=== PATIENT | male | born 1945 | race Caucasian/White ===

== ENCOUNTER 2018-05-13 06:35 | Day surgery (SDC) | payer MEDICARE, BC ==
[2018-05-13] MEDS ORDERED: Lactated Ringers 1,000 ML IV SCH (07:15)
[2018-05-13] MEDS ORDERED: Midazolam 1 MG/ML 2 ML SDV ONE (07:22)
[2018-05-13] MEDS ORDERED: fentaNYL 100 MCG/2 ML SDV ONE (07:22)
[2018-05-13] MEDS ORDERED: Propofol 200 MG/20 ML SDV ONE (07:23)
--- NOTE | 2018-05-13 09:08 | OR ---
DATE OF PROCEDURE: 05/13/2018 PREOP DIAGNOSIS: Blood in stool. POSTOP DIAGNOSIS: Pandiverticulosis, blood in stool, etiology unknown. PROCEDURE PERFORMED: Colonoscopy to the cecum. ANESTHESIA: IV anesthesia with monitored anesthesia care. INDICATION: This 72-year-old white male is referred for a colonoscopy because of blood in his stool. His last colonoscopic exam he says was in 2005. I counseled him for the procedure, including risks and alternatives, and he gave his informed consent to proceed. DESCRIPTION OF PROCEDURE: The patient was placed in the left lateral decubitus position. IV anesthesia was administered by the Anesthesia Service. Time-out was held. A rectal exam was performed, which was unremarkable. The flexible video Olympus colonoscope was introduced through his anus, up his rectum and out his colon all the way to the cecum. The prep was fairly poor. We did have some solid stool present and also a lot of liquid stool, which was aspirated free. En-route, we saw multiple left and right-sided diverticula. There was no bleeding or inflammation associated with them. Indeed we saw no evidence of any old or new blood in the lower gastrointestinal tract. Once the cecum was reached, the scope was slowly withdrawn examining the mucosa throughout. No additional mucosal abnormalities were noted. No neoplastic lesions were seen. The scope was retroflexed in the rectum with the distal rectum showing some hemorrhoidal tissue, otherwise unremarkable. The scope was straightened and removed. He tolerated the procedure well. Ryan Esquivel MD /[id number]
== END 2018-05-13 09:23 | disposition home or self-care (01) ==
LOC: JP.SDS 06:35
PROVIDERS: ATTEND Surgery
DX: K92.1 Melena (principal); K57.30 Diverticulosis of large intestine without perforation or abscess without bleeding; K64.9 Unspecified hemorrhoids; I10 Essential (primary) hypertension; E78.5 Hyperlipidemia, unspecified
CPT/HCPCS: J2250; J2704; J3010; J7120

== ENCOUNTER 2021-12-01 14:03 | Inpatient (IN) | payer MEDICARE, BC ==
[2021-12-01] MEDS ORDERED: HYDROmorphone 0.5 MG/0.5 ML Syringe IVPUSH ONE ×2 (15:10→16:24)
[2021-12-01] MEDS ORDERED: Sodium Chloride 0.9% 10 ML Syringe FLUSH PRN (15:28)
[2021-12-01] MEDS ORDERED: Metoprolol Tartrate 5 MG/5 ML SDV IVPUSH ONE ×2 (16:37→17:12)
[2021-12-01 17:01] LABS: TROPONIN I HIGH SENSITIVITY 8.3 pg/mL (<=60.3)
[2021-12-01] MEDS ORDERED: Metoprolol Tartrate 5 MG in Sodium Chloride 0.9% 50 ML IV ONE (17:02)
[2021-12-01] MEDS: Metoprolol Tartrate 5 MG/5 ML SDV ONE ×2 (17:13→17:16)
[2021-12-01] MEDS ORDERED: Diltiazem 25 MG/5 ML SDV IVPUSH ONE ×2 (18:18→22:35)
[2021-12-01] MEDS: Diltiazem 100 MG in Sodium Chloride 0.9% 100 ML IV SCH (18:47)
[2021-12-01] MEDS ORDERED: Acetaminophen 325 MG Tab PO PRN (19:13)
[2021-12-01] MEDS ORDERED: Ondansetron 4 MG/2 ML SDV IV PRN (19:13)
[2021-12-01] MEDS ORDERED: Ondansetron 4 MG Tab.DIS PO PRN (19:13)
[2021-12-01] MEDS ORDERED: Sodium Chloride 0.9% 1,000 ML IV SCH (19:13)
[2021-12-01] MEDS ORDERED: fentaNYL 100 MCG/2 ML SDV IVPUSH PRN (19:13)
[2021-12-01] MEDS ORDERED: Dexamethasone 2 MG Tab PO ONE (20:00)
[2021-12-01] MEDS ORDERED: carBAMazepine 200 MG Tab PO SCH (21:00)
[2021-12-01] MEDS ORDERED: atorvaSTATin 10 MG Tab PO SCH (21:00)
[2021-12-01] MEDS: Aspirin 81 MG Tab.EC PO SCH (21:22)
[2021-12-01] MEDS: oxyCODONE 5 MG Tab PO PRN (21:22)
[2021-12-01] MEDS: Melatonin 3 MG Tab PO SCH (21:22)
[2021-12-01] MEDS: Dorzolamide/Timolol 2%-0.5% Ophth Soln 10 ML Bottle EYELF SCH (21:24)
[2021-12-01] MEDS: LORazepam 2 MG/ML SDV IVPUSH PRN (21:34)
[2021-12-01] MEDS: tiZANidine 2 MG Tab PO PRN (22:16)
[2021-12-01] MEDS ORDERED: HYDROmorphone 1 MG/ML Syringe IVPUSH PRN (22:53)
[2021-12-01] MEDS ORDERED: Ketorolac 30 MG/ML SDV IVPUSH ONE (22:53)
[2021-12-01] MEDS ORDERED: Metoprolol Tartrate 25 MG Tab PO ONE (22:54)
[2021-12-02] MEDS: oxyCODONE 5 MG Tab PO PRN ×4 (01:31→16:18)
[2021-12-02] MEDS: Diltiazem 100 MG in Sodium Chloride 0.9% 100 ML IV SCH (03:42)
[2021-12-02] MEDS ORDERED: ALPRAZolam 0.25 MG Tab PO PRN (07:08)
[2021-12-02] MEDS: Dexamethasone 2 MG Tab PO SCH ×4 (07:54→20:45)
[2021-12-02] MEDS: Dorzolamide/Timolol 2%-0.5% Ophth Soln 10 ML Bottle EYELF SCH ×2 (08:26→20:44)
[2021-12-02] MEDS: Multivitamins with Iron/Calcium/Folic Acid/Minerals Tab PO SCH (08:32)
[2021-12-02] MEDS: Metoprolol Succinate 50 MG **PTOM PO SCH (08:33)
[2021-12-02] MEDS: CARBAMAZEPINE 100 MG PO SCH ×2 (08:35→20:46)
[2021-12-02] MEDS ORDERED: Clopidogrel 75 MG Tab PO SCH (09:00)
[2021-12-02] MEDS ORDERED: Aspirin 81 MG Tab.EC PO SCH (09:00)
[2021-12-02] MEDS: Hydrochlorothiazide 25 MG **PTOM PO SCH (11:32)
[2021-12-02] MEDS ORDERED: Diltiazem IR 30 MG Tab PO SCH (12:00)
[2021-12-02] MEDS ORDERED: Metoprolol Tartrate 25 MG Tab PO ONE (17:08)
[2021-12-02] MEDS: Diltiazem IR 30 MG Tab PO SCH ×2 (17:37→22:59)
[2021-12-02] MEDS: Melatonin 3 MG Tab PO SCH (20:45)
[2021-12-02] MEDS: Aspirin 81 MG Tab.EC PO SCH (20:45)
[2021-12-02] MEDS: SIMVASTATIN 20 MG PO SCH (20:47)
[2021-12-03] MEDS: LORazepam 2 MG/ML SDV IVPUSH PRN (00:41)
[2021-12-03] MEDS: Diltiazem IR 30 MG Tab PO SCH (06:01)
[2021-12-03] MEDS: Dexamethasone 2 MG Tab PO SCH ×3 (08:37→21:27)
[2021-12-03] MEDS: Dorzolamide/Timolol 2%-0.5% Ophth Soln 10 ML Bottle EYELF SCH ×2 (08:44→21:27)
[2021-12-03] MEDS: CARBAMAZEPINE 100 MG PO SCH ×2 (08:45→21:29)
[2021-12-03] MEDS: Hydrochlorothiazide 25 MG **PTOM PO SCH (08:46)
[2021-12-03] MEDS: Multivitamins with Iron/Calcium/Folic Acid/Minerals Tab PO SCH (08:47)
[2021-12-03] MEDS: Metoprolol Succinate 50 MG **PTOM PO SCH (08:48)
[2021-12-03] MEDS: tiZANidine 2 MG Tab PO PRN ×2 (09:02→21:30)
[2021-12-03] MEDS: Diltiazem 120 MG Cap.CD PO SCH (10:15)
[2021-12-03] MEDS: Acetaminophen/HYDROcodone 325-5 MG Tab PO PRN (11:56)
[2021-12-03] MEDS: Magnesium Hydroxide 400 MG/5 ML Susp 30 ML Cup PO PRN (18:49)
[2021-12-03] MEDS: Rivaroxaban 10 MG Tab PO SCH (18:49)
[2021-12-03] MEDS ORDERED: CARBAMAZEPINE 100 MG PO SCH (21:00)
[2021-12-03] MEDS ORDERED: carBAMazepine 200 MG Tab PO SCH (21:00)
[2021-12-03] MEDS: Aspirin 81 MG Tab.EC PO SCH (21:28)
[2021-12-03] MEDS: Melatonin 3 MG Tab PO SCH (21:28)
[2021-12-03] MEDS: SIMVASTATIN 20 MG PO SCH (21:30)
[2021-12-04] MEDS ORDERED: Meropenem 1 GM in Sodium Chloride 0.9% 100 ML IV SCH ×2
[2021-12-04] MEDS: Morphine 2 MG/ML SYRINGE IVPUSH PRN ×3 (04:28→22:26)
[2021-12-04] MEDS: Acetaminophen/HYDROcodone 325-5 MG Tab PO PRN ×4 (08:47→21:35)
[2021-12-04] MEDS: Multivitamins with Iron/Calcium/Folic Acid/Minerals Tab PO SCH (08:48)
[2021-12-04] MEDS: Dorzolamide/Timolol 2%-0.5% Ophth Soln 10 ML Bottle EYELF SCH ×2 (08:48→20:16)
[2021-12-04] MEDS: CARBAMAZEPINE 100 MG PO SCH ×2 (08:49→20:12)
[2021-12-04] MEDS: Dexamethasone 2 MG Tab PO SCH (08:49)
[2021-12-04] MEDS: Diltiazem 120 MG Cap.CD PO SCH (08:50)
[2021-12-04] MEDS: Metoprolol Succinate 50 MG **PTOM PO SCH (08:50)
[2021-12-04] MEDS: Magnesium Hydroxide 400 MG/5 ML Susp 30 ML Cup PO PRN (10:38)
[2021-12-04] MEDS ORDERED: Furosemide 20 MG/2 ML VIAL IVPUSH ONE (16:00)
[2021-12-04] MEDS ORDERED: Bisacodyl 10 MG Supp RECTAL ONE (16:10)
[2021-12-04] MEDS ORDERED: Sodium Phosphate,Monobasic/Sodium Phosphate,Dibasic Enema 133 ML Bottle RECTAL PRN (16:15)
[2021-12-04] MEDS: Rivaroxaban 10 MG Tab PO SCH (17:07)
[2021-12-04] MEDS ORDERED: Sodium Chloride 0.9% 1,000 ML IV SCH (19:45)
[2021-12-04] MEDS: SIMVASTATIN 20 MG PO SCH (20:12)
[2021-12-04] MEDS: Aspirin 81 MG Tab.EC PO SCH (20:12)
[2021-12-04] MEDS: Melatonin 3 MG Tab PO SCH (20:12)
[2021-12-04] MEDS ORDERED: ceFAZolin 2 GM in Premix Bag 1 BAG IV SCH (21:00)
[2021-12-04] MEDS ORDERED: Diltiazem IR 30 MG Tab PO ONE (21:23)
[2021-12-04] MEDS: tiZANidine 2 MG Tab PO PRN (21:35)
[2021-12-04] MEDS ORDERED: Levofloxacin/Dextrose 5%-Water 750 MG in Premix Bag 1 BAG IV SCH (23:00)
[2021-12-04] MEDS ORDERED: Vancomycin 1 GM SDV IV SCH (23:45)
[2021-12-05] MEDS ORDERED: Meropenem 1 GM in Sodium Chloride 0.9% 100 ML IV SCH ×2
[2021-12-05] MEDS ORDERED: Levofloxacin/Dextrose 5%-Water 750 MG in Premix Bag 1 BAG IV SCH (01:00)
[2021-12-05] MEDS: LORazepam 2 MG/ML SDV IVPUSH PRN ×2 (01:42→11:27)
[2021-12-05] MEDS: Morphine 2 MG/ML SYRINGE IVPUSH PRN ×2 (03:50→10:00)
[2021-12-05] MEDS: tiZANidine 2 MG Tab PO PRN (05:00)
[2021-12-05] MEDS ORDERED: Lidocaine 2% Jelly 10 ML Urojet MUCMEM ONE (05:42)
[2021-12-05] MEDS ORDERED: Haloperidol Lactate 5 MG/ML SDV ONE (05:45)
[2021-12-05] MEDS ORDERED: Lidocaine 2% Jelly 10 ML Urojet ONE (05:45)
[2021-12-05] MEDS: Haloperidol Lactate 5 MG/ML SDV IVPUSH PRN ×4 (05:49→20:40)
[2021-12-05] MEDS: Diltiazem 120 MG Cap.CD PO SCH (08:09)
[2021-12-05] MEDS: Metoprolol Succinate 50 MG **PTOM PO SCH (08:09)
[2021-12-05] MEDS: Multivitamins with Iron/Calcium/Folic Acid/Minerals Tab PO SCH (08:09)
[2021-12-05] MEDS: Dorzolamide/Timolol 2%-0.5% Ophth Soln 10 ML Bottle EYELF SCH ×2 (08:10→22:25)
[2021-12-05] MEDS: CARBAMAZEPINE 100 MG PO SCH ×2 (08:10→22:26)
[2021-12-05] MEDS: Meropenem 1 GM in Sodium Chloride 0.9% 100 ML IV SCH ×2 (08:22→16:11)
[2021-12-05] MEDS: Acetaminophen 325 MG Tab PO PRN ×2 (11:26→22:25)
[2021-12-05] MEDS: Diltiazem 100 MG in Sodium Chloride 0.9% 100 ML IV SCH ×2 (11:30→22:02)
[2021-12-05] MEDS ORDERED: HYDROmorphone 1 MG/ML Syringe IVPUSH PRN (12:51)
[2021-12-05] MEDS ORDERED: Tamsulosin 0.4 MG Cap.ER PO SCH (13:00)
[2021-12-05] MEDS ORDERED: HYDROmorphone 0.5 MG/0.5 ML Syringe IVPUSH PRN (13:05)
[2021-12-05] MEDS ORDERED: Sodium Chloride 0.9% 100 ML IV SCH (13:15)
[2021-12-05] MEDS ORDERED: Iopamidol 755 Mg/ML 100 ML Bottle IV SCH (14:00)
[2021-12-05] MEDS ORDERED: Vancomycin 1 GM SDV ONE (14:00)
[2021-12-05] MEDS ORDERED: Iopamidol 612 MG/ML 100 ML Bottle IV ONE (14:27)
[2021-12-05] MEDS ORDERED: Sodium Chloride 3% 500 ML IV SCH (17:00)
[2021-12-05] MEDS: Rivaroxaban 10 MG Tab PO SCH (17:17)
[2021-12-05] MEDS: Melatonin 3 MG Tab PO SCH (22:26)
[2021-12-05] MEDS: Aspirin 81 MG Tab.EC PO SCH (22:26)
[2021-12-05] MEDS: SIMVASTATIN 20 MG PO SCH (22:26)
[2021-12-06] MEDS ORDERED: Metoprolol Succinate 50 MG Tab.ER PO SCH (09:00)
== END 2021-12-05 22:35 | DRG 94 ==
LOC: JP.ED 14:03 → UNDOADMOB 18:20 → JP.ICU 18:20 → OBSVTOIN 19:30 → INTOOBSV 19:30 → OBSVTOIN 12-04 19:30 → JP.ICU 12-04 19:30
PROVIDERS: ADMIT Internal Medicine; ATTEND Hospitalist
DX: G06.1 Intraspinal abscess and granuloma (principal); J18.9 Pneumonia, unspecified organism; H91.93 Unspecified hearing loss, bilateral; N13.8 Other obstructive and reflux uropathy; I10 Essential (primary) hypertension; E87.1 Hypo-osmolality and hyponatremia; N40.0 Benign prostatic hyperplasia without lower urinary tract symptoms; F05 Delirium due to known physiological condition; I48.91 Unspecified atrial fibrillation; N40.1 Benign prostatic hyperplasia with lower urinary tract symptoms; I25.2 Old myocardial infarction; I08.0 Rheumatic disorders of both mitral and aortic valves; M54.50 Low back pain, unspecified; M47.816 Spondylosis without myelopathy or radiculopathy, lumbar region; I77.89 Other specified disorders of arteries and arterioles; H91.90 Unspecified hearing loss, unspecified ear; E66.9 Obesity, unspecified; E78.00 Pure hypercholesterolemia, unspecified; Z68.35 Body mass index [BMI] 35.0-35.9, adult; Z95.5 Presence of coronary angioplasty implant and graft; Z86.19 Personal history of other infectious and parasitic diseases; Z79.82 Long term (current) use of aspirin; Z79.899 Other long term (current) drug therapy; Z97.4 Presence of external hearing-aid; Z79.02 Long term (current) use of antithrombotics/antiplatelets
CPT/HCPCS: 36415; 51702; 71046; 71046-26; 71260; 71260-26; 72100; 72100-26; 72133; 72133-26; 74019; 74019-26; 74177; 74177-26; 80048; 81001; 83735; 84295; 84443; 84484; 85025; 85610; 87040; 87077; 87186; 93005; 93010; 93306; 96365; 96366; 96374; 96375; 96376; 97161-GP; 99283; 99285-25; A9270-GY; G0378; J0690; J1170; J1630; J1885; J1940; J1956; J2060; J2185; J2270; J3010; J3370; J3490; J7030; J7050; J7131; J8540; Q0162; Q9967

== ENCOUNTER 2023-03-30 11:07 | Inpatient (IN) | payer MEDICARE, BC ==
[2023-03-30] MEDS ORDERED: Sodium Chloride 0.9% 10 ML Syringe FLUSH PRN (11:57)
[2023-03-30] MEDS ORDERED: Metoclopramide 10 MG/2 ML SDV IVPUSH ONE (12:00)
[2023-03-30] MEDS ORDERED: HYDROmorphone 0.5 MG/0.5 ML Syringe IVPUSH ONE ×2 (12:00→14:45)
[2023-03-30 12:11] LABS: HEMOGLOBIN 15.8 g/dL (12.9-16.9); MEAN CORPUSCULAR HEMOGLOBIN 32.1 pg (31.6-35.5); MEAN CORPUSCULAR HGB CONC 34.3 g/dL (31.6-35.5); MEAN CORPUSCULAR VOLUME 93.5 fL (81.4-99.0); PLATELET COUNT,PLT 162 K/uL (130-375); RED BLOOD CELL COUNT 4.92 M/uL (4.14-5.76); WHITE BLOOD CELL COUNT,WBC 7.2 K/uL (3.2-11.0)
[2023-03-30 12:32] LABS: A/G RATIO 0.9 (1.2-2.2); ALANINE AMINOTRANSFERASE,ALT 26 U/L (12-78); ALBUMIN 3.4 g/dL (3.4-5.0); ALKALINE PHOSPHATASE 100 U/L (46-116); ASPARTATE AMNIOTRANSFERASE,AST 29 U/L (15-37); BILIRUBIN TOTAL 2.1 mg/dL (0.2-1.0); BLOOD UREA NITROGEN,BUN 16 mg/dL (7-18); C-REACTIVE PROTEIN 7.05 mg/dL (0.0-0.3); CALCIUM 9.8 mg/dL (8.5-10.1); CARBON DIOXIDE,CO2 33 mmol/L (21-32); CHLORIDE,CL 98 mmol/L (100-108); CREATININE 1.1 mg/dL (0.8-1.3); EST CRCL DRUG DOSING (CG) 52.68 mL/min; ESTIMATED GFR 68 mL/min (>60); GLUCOSE RANDOM 138 mg/dL (74-106); POTASSIUM,K 3.9 mmol/L (3.6-5.2); PROTEIN TOTAL,TP 7.4 g/dL (6.4-8.2); SODIUM,NA 139 mmol/L (140-148)
[2023-03-30 12:35] LABS: BAND ABSOLUTE MAN 1.58 K/uL; BAND PERCENT MAN 22 % (5-11); LYMPHOCYTES ABSOLUTE MAN 0.72 K/uL (0.8-3.3); LYMPHOCYTES PERCENT MAN 10 % (24-44); MONOCYTES ABSOLUTE MAN 0.79 K/uL (0.20-0.90); MONOCYTES PERCENT MAN 11 % (2-6); SEG NEUTROPHILS PERCENT MAN 57 % (36-66)
[2023-03-30 12:37] LABS: ANION GAP 11.9 mmol/L (5.0-14.0)
[2023-03-30] MEDS ORDERED: Sodium Chloride 0.9% 50 ML IV ONE (12:42)
[2023-03-30] MEDS ORDERED: Iopamidol 612 MG/ML 100 ML Bottle IV ONE (12:42)
[2023-03-30] MEDS ORDERED: Sodium Chloride 0.9% 10 ML Syringe FLUSH ONE (12:42)
[2023-03-30 13:44] LABS: APPEARANCE,URINE SLIGHTLY CLOUDY (CLEAR); BILIRUBIN,URINE NEGATIVE (NEGATIVE); COLOR,URINE YELLOW (YELLOW); GLUCOSE,URINE NEGATIVE (NEGATIVE); KETONES,URINE NEGATIVE (NEGATIVE); LEUKOCYTE ESTERASE,URINE NEGATIVE (NEGATIVE); NITRITE,URINE NEGATIVE (NEGATIVE); OCCULT BLOOD,URINE SMALL (NEGATIVE); PROTEIN,URINE 30 mg/dL (NEGATIVE); UROBILINOGEN,URINE 0.2 EU/dL (0.2-1.0)
[2023-03-30 13:49] LABS: AMORPHOUS SEDIMENT,URINE RARE; BACTERIA,URINE NOT SEEN; EPITHELIAL CELLS,URINE NOT SEEN; MUCUS,URINE NOT SEEN; WBC,URINE 0-5 (0-5)
[2023-03-30] MEDS ORDERED: Meropenem 500 MG in Sodium Chloride 0.9% 50 ML IV ONE (14:37)
[2023-03-30] MEDS ORDERED: Sodium Chloride 0.9% 1,000 ML IV SCH (15:15)
[2023-03-30] MEDS ORDERED: Glycopyrrolate 0.2 MG/ML 5 ML MDV ONE (15:24)
[2023-03-30] MEDS ORDERED: Neostigmine Methylsulfate 1 MG/ML 5 ML Syringe ONE (15:24)
[2023-03-30] MEDS ORDERED: Succinylcholine 200 MG/10 ML MDV ONE (15:24)
[2023-03-30] MEDS ORDERED: Ondansetron 4 MG/2 ML SDV ONE (15:24)
[2023-03-30] MEDS ORDERED: Propofol 200 MG/20 ML SDV ONE (15:24)
[2023-03-30] MEDS ORDERED: Rocuronium 50 MG/5 ML Vial ONE (15:24)
[2023-03-30] MEDS ORDERED: fentaNYL 250 MCG/5 ML SDV ONE (15:24)
[2023-03-30] MEDS ORDERED: Dexamethasone 4 MG/ML SDV ONE (15:24)
[2023-03-30] MEDS ORDERED: Ketamine 500 MG/5 ML MDV IV SCH (15:30)
[2023-03-30] MEDS ORDERED: Ropivacaine 40 ML, dexAMETHasone 8 MG, EPINEPHrine 0.4 MG, Sodium Chloride 0.9% 37.6 ML NERVRT SCH ×4 (15:30)
[2023-03-30] MEDS ORDERED: Ketamine 20 MG in Sodium Chloride 0.9% 19.8 ML IV SCH (15:30)
[2023-03-30] MEDS ORDERED: Lidocaine 2% Jelly 10 ML Urojet ONE (15:38)
[2023-03-30] MEDS ORDERED: Lidocaine 1% with EPINEPHrine 1:100,000 50 ML MDV ONE (15:38)
[2023-03-30] MEDS ORDERED: Bupivacaine 0.5% 50 ML MDV ONE (15:38)
[2023-03-30] MEDS ORDERED: Meropenem 500 MG SDV ONE ×3 (15:38→16:47)
[2023-03-30] MEDS ORDERED: Linezolid 600 MG/300 ML Premix Bag IRR ONE ×2 (16:00→16:15)
[2023-03-30] MEDS ORDERED: Lactated Ringers 1,000 ML ONE (16:27)
[2023-03-30] MEDS ORDERED: Linezolid 600 MG/300 ML Premix Bag IV ONE (16:30)
[2023-03-30] MEDS ORDERED: Cyclobenzaprine 10 MG Tab PO PRN (19:30)
[2023-03-30] MEDS ORDERED: hydrOXYzine HCL 100 MG/2 ML SDV IM PRN (20:00)
[2023-03-30] MEDS ORDERED: Ondansetron 4 MG/2 ML SDV IVPUSH PRN (20:00)
[2023-03-30] MEDS ORDERED: Naloxone 0.4 MG/ML SDV IV PRN (20:00)
[2023-03-30] MEDS ORDERED: diphenhydrAMINE 50 MG/ML SDV IVPUSH PRN (20:00)
[2023-03-30] MEDS ORDERED: Acetaminophen 500 MG Tab PO PRN (20:00)
[2023-03-30] MEDS: Pantoprazole 40 MG Vial IVPUSH SCH (20:00)
[2023-03-30] MEDS ORDERED: Labetalol 20 MG/4 ML Syringe IVPUSH PRN (20:00)
[2023-03-30] MEDS ORDERED: Metoclopramide 10 MG/2 ML SDV IVPUSH PRN (20:00)
[2023-03-30] MEDS: Acetaminophen 500 MG Tab PO SCH (20:00)
[2023-03-30] MEDS: HYDROmorphone/Normal Saline 6 MG/30 ML PCA Vial IV PRN (20:01)
[2023-03-30] MEDS ORDERED: Lactated Ringers 750 ML IV SCH (20:30)
[2023-03-30] MEDS ORDERED: Lactated Ringers 750 ML IV ONE (21:09)
[2023-03-30] MEDS: Fluconazole/Normal Saline 400 MG in Premix Bag 1 BAG IV SCH (21:39)
[2023-03-30] MEDS: Meropenem 500 MG in Sodium Chloride 0.9% 50 ML IV SCH (23:57)
[2023-03-31] MEDS ORDERED: Lactated Ringers 500 ML IV ONE ×2 (01:06→03:25)
[2023-03-31] MEDS: Sotalol 80 MG Tab PO SCH ×3 (01:23→21:24)
[2023-03-31] MEDS: Lactated Ringers 1,000 ML IV SCH ×3 (03:16→23:44)
[2023-03-31] MEDS: Metoprolol Tartrate 50 MG Tab ONE ×2 (03:40→03:42)
[2023-03-31] MEDS ORDERED: Metoprolol Succinate 50 MG Tab.ER ONE (03:47)
[2023-03-31] MEDS: Metoprolol Succinate 50 MG Tab.ER PO SCH ×2 (03:48→09:39)
[2023-03-31] MEDS: Acetaminophen 500 MG Tab PO SCH ×3 (04:14→21:24)
[2023-03-31 04:43] LABS: HEMATOCRIT 42.5 % (38.4-49.7); HEMOGLOBIN 14.4 g/dL (12.9-16.9); MEAN CORPUSCULAR HEMOGLOBIN 32.2 pg (31.6-35.5); MEAN CORPUSCULAR HGB CONC 33.9 g/dL (31.6-35.5); MEAN CORPUSCULAR VOLUME 95.1 fL (81.4-99.0); PLATELET COUNT,PLT 176 K/uL (130-375); RED BLOOD CELL COUNT 4.47 M/uL (4.14-5.76); WHITE BLOOD CELL COUNT,WBC 10.9 K/uL (3.2-11.0)
[2023-03-31] MEDS: Meropenem 500 MG in Sodium Chloride 0.9% 50 ML IV SCH ×4 (04:53→23:41)
[2023-03-31 05:11] LABS: A/G RATIO 0.8 (1.2-2.2); ALANINE AMINOTRANSFERASE,ALT 20 U/L (12-78); ALBUMIN 2.5 g/dL (3.4-5.0); ALKALINE PHOSPHATASE 69 U/L (46-116); ASPARTATE AMNIOTRANSFERASE,AST 20 U/L (15-37); BILIRUBIN TOTAL 1.6 mg/dL (0.2-1.0); BLOOD UREA NITROGEN,BUN 25 mg/dL (7-18); CALCIUM 8.8 mg/dL (8.5-10.1); CARBON DIOXIDE,CO2 29 mmol/L (21-32); CHLORIDE,CL 100 mmol/L (100-108); CREATININE 1.3 mg/dL (0.8-1.3); EST CRCL DRUG DOSING (CG) 44.58 mL/min; ESTIMATED GFR 56 mL/min (>60); GLUCOSE RANDOM 99 mg/dL (74-106); MAGNESIUM 1.7 mg/dL (1.8-2.4); PHOSPHORUS 4.8 mg/dL (2.5-4.9); POTASSIUM,K 4.2 mmol/L (3.6-5.2); PRO B-TYPE NATRIUR PEPT,BNPPRO 6372 pg/mL (5-450); PROTEIN TOTAL,TP 5.7 g/dL (6.4-8.2); SODIUM,NA 137 mmol/L (140-148)
[2023-03-31] MEDS ORDERED: Sodium Chloride 0.9% 500 ML IV ONE (05:11)
[2023-03-31 05:19] LABS: ANION GAP 12.2 mmol/L (5.0-14.0)
[2023-03-31 05:22] LABS: BAND ABSOLUTE MAN 2.94 K/uL; BAND PERCENT MAN 27 % (5-11); LYMPHOCYTES ABSOLUTE MAN 0.87 K/uL (0.8-3.3); LYMPHOCYTES PERCENT MAN 8 % (24-44); METAMYELOCYTE ABSOLUTE MAN 0.22 K/uL; METAMYELOCYTE PERCENT MAN 2 %; MONOCYTES ABSOLUTE MAN 0.65 K/uL (0.20-0.90); MONOCYTES PERCENT MAN 6 % (2-6); NEUTROPHILS ABSOLUTE MAN 6.21 K/uL (1.0-7.6); SEG NEUTROPHILS PERCENT MAN 57 % (36-66)
[2023-03-31] MEDS: Linezolid 600 MG in Premix Bag 1 BAG IV SCH ×2 (06:02→17:19)
[2023-03-31] MEDS ORDERED: Lactated Ringers 500 ML IV SCH (08:15)
[2023-03-31] MEDS ORDERED: Norepinephrine Bit/D5W Premix 4 MG in Premix Bag 1 BAG IV SCH (08:15)
[2023-03-31] MEDS ORDERED: Diltiazem 25 MG/5 ML SDV IVPUSH ONE (08:33)
[2023-03-31] MEDS: Diltiazem 100 MG in Sodium Chloride 0.9% 100 ML IV SCH (09:30)
[2023-03-31] MEDS: Tamsulosin 0.4 MG Cap.ER PO SCH (09:41)
[2023-03-31] MEDS ORDERED: Bupivacaine 0.5% 50 ML MDV ONE (10:45)
[2023-03-31] MEDS ORDERED: Meropenem 500 MG SDV ONE (10:45)
[2023-03-31] MEDS ORDERED: Lidocaine 1% with EPINEPHrine 1:100,000 50 ML MDV ONE (10:45)
[2023-03-31] MEDS ORDERED: Rocuronium 50 MG/5 ML Vial ONE (10:58)
[2023-03-31] MEDS ORDERED: Ondansetron 4 MG/2 ML SDV ONE (10:58)
[2023-03-31] MEDS ORDERED: Succinylcholine 200 MG/10 ML MDV ONE (10:58)
[2023-03-31] MEDS ORDERED: Propofol 200 MG/20 ML SDV ONE (10:58)
[2023-03-31] MEDS ORDERED: Neostigmine Methylsulfate 1 MG/ML 5 ML Syringe ONE (10:58)
[2023-03-31] MEDS ORDERED: Dexamethasone 4 MG/ML SDV ONE (10:58)
[2023-03-31] MEDS ORDERED: Glycopyrrolate 0.2 MG/ML 5 ML MDV ONE (10:58)
[2023-03-31] MEDS ORDERED: fentaNYL 250 MCG/5 ML SDV ONE (11:00)
[2023-03-31] MEDS ORDERED: Ketamine 20 MG in Sodium Chloride 0.9% 19.8 ML IV SCH (12:00)
[2023-03-31] MEDS ORDERED: Ketamine 500 MG/5 ML MDV IV SCH (12:00)
[2023-03-31] MEDS ORDERED: MVI, Adult with Vitamin K 10 ML, Thiamine 200 MG, Zinc/Copper/Manganese/Selenium 1 ML i... IV SCH ×4 (14:00)
[2023-03-31] MEDS ORDERED: Linezolid 600 MG/300 ML Premix Bag IRR ONE (14:57)
[2023-03-31] MEDS ORDERED: Sugammadex Sodium 200 MG/2 ML VIAL ONE (15:28)
[2023-03-31] MEDS ORDERED: Heparin Sodium 5,000 UNITS in Sodium Chloride 0.9% 500 ML IV SCH (17:00)
[2023-03-31] MEDS: HYDROmorphone/Normal Saline 6 MG/30 ML PCA Vial IV PRN (17:25)
[2023-03-31] MEDS: MVI, Adult with Vitamin K 10 ML, Thiamine 200 MG, Zinc/Copper/Manganese/Selenium 1 ML i... IV SCH ×4 (17:45)
[2023-03-31] MEDS: Dorzolamide/Timolol 2%-0.5% Ophth Soln 10 ML Bottle EYELF SCH ×2 (19:53→20:32)
[2023-03-31] MEDS: Pantoprazole 40 MG Vial IVPUSH SCH (20:00)
[2023-03-31] MEDS: Fluconazole/Normal Saline 400 MG in Premix Bag 1 BAG IV SCH (21:23)
[2023-04-01] MEDS: Diltiazem 100 MG in Sodium Chloride 0.9% 100 ML IV SCH ×2 (00:22→15:37)
[2023-04-01] MEDS ORDERED: Lactated Ringers 500 ML IV ONE (00:30)
[2023-04-01] MEDS: Lactated Ringers 1,000 ML IV SCH ×3 (03:17→22:03)
[2023-04-01 04:21] LABS: HEMATOCRIT 36.9 % (38.4-49.7); HEMOGLOBIN 12.4 g/dL (12.9-16.9); MEAN CORPUSCULAR HEMOGLOBIN 32.3 pg (31.6-35.5); MEAN CORPUSCULAR HGB CONC 33.6 g/dL (31.6-35.5); MEAN CORPUSCULAR VOLUME 96.1 fL (81.4-99.0); PLATELET COUNT,PLT 169 K/uL (130-375); RED BLOOD CELL COUNT 3.84 M/uL (4.14-5.76); WHITE BLOOD CELL COUNT,WBC 11.2 K/uL (3.2-11.0)
[2023-04-01 04:47] LABS: BAND ABSOLUTE MAN 2.58 K/uL; BAND PERCENT MAN 23 % (5-11); LYMPHOCYTES ABSOLUTE MAN 1.01 K/uL (0.8-3.3); LYMPHOCYTES PERCENT MAN 9 % (24-44); METAMYELOCYTE ABSOLUTE MAN 0.11 K/uL; METAMYELOCYTE PERCENT MAN 1 %; MONOCYTES ABSOLUTE MAN 0.67 K/uL (0.20-0.90); MONOCYTES PERCENT MAN 6 % (2-6); NEUTROPHILS ABSOLUTE MAN 6.83 K/uL (1.0-7.6); SEG NEUTROPHILS PERCENT MAN 61 % (36-66)
[2023-04-01 04:53] LABS: A/G RATIO 0.7 (1.2-2.2); ALANINE AMINOTRANSFERASE,ALT 20 U/L (12-78); ALBUMIN 2.2 g/dL (3.4-5.0); ALKALINE PHOSPHATASE 62 U/L (46-116); ASPARTATE AMNIOTRANSFERASE,AST 28 U/L (15-37); BILIRUBIN TOTAL 0.9 mg/dL (0.2-1.0); BLOOD UREA NITROGEN,BUN 27 mg/dL (7-18); CALCIUM 8.2 mg/dL (8.5-10.1); CARBON DIOXIDE,CO2 29 mmol/L (21-32); CHLORIDE,CL 101 mmol/L (100-108); CREATININE 1.2 mg/dL (0.8-1.3); EST CRCL DRUG DOSING (CG) 48.29 mL/min; ESTIMATED GFR 62 mL/min (>60); GLUCOSE RANDOM 105 mg/dL (74-106); MAGNESIUM 1.9 mg/dL (1.8-2.4); PHOSPHORUS 3.3 mg/dL (2.5-4.9); POTASSIUM,K 4.4 mmol/L (3.6-5.2); PRO B-TYPE NATRIUR PEPT,BNPPRO 4021 pg/mL (5-450); PROTEIN TOTAL,TP 5.5 g/dL (6.4-8.2); SODIUM,NA 135 mmol/L (140-148)
[2023-04-01] MEDS: Meropenem 500 MG in Sodium Chloride 0.9% 50 ML IV SCH ×4 (05:13→23:39)
[2023-04-01] MEDS: Linezolid 600 MG in Premix Bag 1 BAG IV SCH ×2 (05:38→18:20)
[2023-04-01 05:41] LABS: ANION GAP 9.4 mmol/L (5.0-14.0)
[2023-04-01] MEDS: Acetaminophen 500 MG Tab PO SCH ×4 (05:56→21:18)
[2023-04-01] MEDS: Sotalol 80 MG Tab PO SCH ×2 (09:00→20:20)
[2023-04-01] MEDS: Tamsulosin 0.4 MG Cap.ER PO SCH (09:01)
[2023-04-01] MEDS: Metoprolol Succinate 50 MG Tab.ER PO SCH (09:02)
[2023-04-01] MEDS: Dorzolamide/Timolol 2%-0.5% Ophth Soln 10 ML Bottle EYELF SCH ×2 (09:19→20:19)
[2023-04-01] MEDS: Azithromycin 125 MG in Sodium Chloride 0.9% 100 ML IV SCH ×2 (09:58→22:01)
[2023-04-01] MEDS: prednisoLONE Acetate 1% Ophth Susp (PTOM) EYELF SCH (11:15)
[2023-04-01] MEDS: MVI, Adult with Vitamin K 10 ML, Thiamine 200 MG, Zinc/Copper/Manganese/Selenium 1 ML i... IV SCH ×4 (15:14)
[2023-04-01] MEDS: Pantoprazole 40 MG Vial IVPUSH SCH (20:17)
[2023-04-01] MEDS: Fluconazole/Normal Saline 200 MG in Premix Bag 1 BAG IV SCH ×2 (21:22→22:26)
[2023-04-02] MEDS: Lactated Ringers 1,000 ML IV SCH ×2 (04:10→10:25)
[2023-04-02] MEDS: Diltiazem 100 MG in Sodium Chloride 0.9% 100 ML IV SCH ×2 (04:13→17:28)
[2023-04-02] MEDS: Meropenem 500 MG in Sodium Chloride 0.9% 50 ML IV SCH ×4 (04:15→22:32)
[2023-04-02 04:45] LABS: HEMATOCRIT 37.7 % (38.4-49.7); HEMOGLOBIN 12.6 g/dL (12.9-16.9); MEAN CORPUSCULAR HEMOGLOBIN 32.1 pg (31.6-35.5); MEAN CORPUSCULAR HGB CONC 33.4 g/dL (31.6-35.5); MEAN CORPUSCULAR VOLUME 96.2 fL (81.4-99.0); RED BLOOD CELL COUNT 3.92 M/uL (4.14-5.76); WHITE BLOOD CELL COUNT,WBC 13.6 K/uL (3.2-11.0)
[2023-04-02 05:12] LABS: A/G RATIO 0.6 (1.2-2.2); ALANINE AMINOTRANSFERASE,ALT 22 U/L (12-78); ALBUMIN 2.1 g/dL (3.4-5.0); ALKALINE PHOSPHATASE 58 U/L (46-116); ASPARTATE AMNIOTRANSFERASE,AST 30 U/L (15-37); BILIRUBIN TOTAL 0.6 mg/dL (0.2-1.0); BLOOD UREA NITROGEN,BUN 21 mg/dL (7-18); CALCIUM 8.1 mg/dL (8.5-10.1); CARBON DIOXIDE,CO2 29 mmol/L (21-32); CHLORIDE,CL 102 mmol/L (100-108); EST CRCL DRUG DOSING (CG) 57.95 mL/min; ESTIMATED GFR 77 mL/min (>60); GLUCOSE RANDOM 101 mg/dL (74-106); MAGNESIUM 1.9 mg/dL (1.8-2.4); POTASSIUM,K 4.1 mmol/L (3.6-5.2); PRO B-TYPE NATRIUR PEPT,BNPPRO 3290 pg/mL (5-450); PROTEIN TOTAL,TP 5.5 g/dL (6.4-8.2); SODIUM,NA 136 mmol/L (140-148)
[2023-04-02 05:25] LABS: ANION GAP 9.1 mmol/L (5.0-14.0)
[2023-04-02] MEDS: Linezolid 600 MG in Premix Bag 1 BAG IV SCH ×2 (05:58→17:43)
[2023-04-02] MEDS: Acetaminophen 500 MG Tab PO SCH ×3 (05:59→21:31)
[2023-04-02] MEDS ORDERED: Meropenem 500 MG SDV ONE (06:35)
[2023-04-02] MEDS ORDERED: Lidocaine 1% with EPINEPHrine 1:100,000 50 ML MDV ONE (06:36)
[2023-04-02] MEDS ORDERED: Bupivacaine 0.5% 50 ML MDV ONE (06:36)
[2023-04-02] MEDS ORDERED: fentaNYL 100 MCG/2 ML SDV ONE (07:18)
[2023-04-02] MEDS ORDERED: Propofol 200 MG/20 ML SDV ONE (07:18)
[2023-04-02] MEDS ORDERED: Furosemide 20 MG/2 ML VIAL IV ONE ×2 (09:30→21:00)
[2023-04-02] MEDS: Metoprolol Succinate 50 MG Tab.ER PO SCH (10:14)
[2023-04-02] MEDS: Sotalol 80 MG Tab PO SCH ×2 (10:15→21:18)
[2023-04-02] MEDS: Tamsulosin 0.4 MG Cap.ER PO SCH (10:15)
[2023-04-02] MEDS: Dorzolamide/Timolol 2%-0.5% Ophth Soln 10 ML Bottle EYELF SCH ×2 (10:17→21:17)
[2023-04-02] MEDS: Azithromycin 125 MG in Sodium Chloride 0.9% 100 ML IV SCH ×2 (10:40→23:08)
[2023-04-02] MEDS: HYDROmorphone/Normal Saline 6 MG/30 ML PCA Vial IV PRN (10:53)
[2023-04-02] MEDS: prednisoLONE Acetate 1% Ophth Susp (PTOM) EYELF SCH (12:26)
[2023-04-02] MEDS ORDERED: Heparin Sodium 5,000 UNITS in Sodium Chloride 0.9% 500 ML IV SCH (13:00)
[2023-04-02] MEDS: Pantoprazole 40 MG Vial IVPUSH SCH (19:46)
[2023-04-02] MEDS: Fluconazole/Normal Saline 200 MG in Premix Bag 1 BAG IV SCH ×2 (21:19→22:30)
[2023-04-03] MEDS: Meropenem 500 MG in Sodium Chloride 0.9% 50 ML IV SCH ×4 (04:27→23:17)
[2023-04-03 04:49] LABS: HEMATOCRIT 37.1 % (38.4-49.7); HEMOGLOBIN 12.6 g/dL (12.9-16.9); MEAN CORPUSCULAR HEMOGLOBIN 31.8 pg (31.6-35.5); MEAN CORPUSCULAR VOLUME 93.7 fL (81.4-99.0); RED BLOOD CELL COUNT 3.96 M/uL (4.14-5.76); WHITE BLOOD CELL COUNT,WBC 10.1 K/uL (3.2-11.0)
[2023-04-03 05:20] LABS: A/G RATIO 0.6 (1.2-2.2); ALANINE AMINOTRANSFERASE,ALT 25 U/L (12-78); ALKALINE PHOSPHATASE 54 U/L (46-116); ASPARTATE AMNIOTRANSFERASE,AST 26 U/L (15-37); BILIRUBIN TOTAL 0.6 mg/dL (0.2-1.0); BLOOD UREA NITROGEN,BUN 17 mg/dL (7-18); CARBON DIOXIDE,CO2 29 mmol/L (21-32); CHLORIDE,CL 104 mmol/L (100-108); CREATININE 0.9 mg/dL (0.8-1.3); EST CRCL DRUG DOSING (CG) 64.39 mL/min; ESTIMATED GFR 87 mL/min (>60); GLUCOSE RANDOM 114 mg/dL (74-106); MAGNESIUM 1.8 mg/dL (1.8-2.4); POTASSIUM,K 3.3 mmol/L (3.6-5.2); PRO B-TYPE NATRIUR PEPT,BNPPRO 5776 pg/mL (5-450); PROTEIN TOTAL,TP 5.2 g/dL (6.4-8.2); SODIUM,NA 139 mmol/L (140-148)
[2023-04-03 05:21] LABS: ANION GAP 9.3 mmol/L (5.0-14.0)
[2023-04-03] MEDS: Linezolid 600 MG in Premix Bag 1 BAG IV SCH (05:26)
[2023-04-03] MEDS: Lactated Ringers 1,000 ML IV SCH ×2 (05:27→20:40)
[2023-04-03] MEDS: Acetaminophen 500 MG Tab PO SCH ×3 (05:40→22:02)
[2023-04-03] MEDS: Diltiazem 100 MG in Sodium Chloride 0.9% 100 ML IV SCH (06:29)
[2023-04-03] MEDS ORDERED: Potassium Phosphates 3 mMole/ML 15 ML SDV IV ONE (07:17)
[2023-04-03] MEDS ORDERED: Furosemide 20 MG/2 ML VIAL IVPUSH ONE ×2 (07:30→14:00)
[2023-04-03] MEDS: Dorzolamide/Timolol 2%-0.5% Ophth Soln 10 ML Bottle EYELF SCH ×2 (08:42→21:03)
[2023-04-03] MEDS: Sotalol 80 MG Tab PO SCH ×2 (08:44→21:01)
[2023-04-03] MEDS: Docusate Sodium 100 MG Cap PO SCH ×2 (08:45→21:02)
[2023-04-03] MEDS: Bisacodyl 5 MG Tab PO SCH ×2 (08:46→21:00)
[2023-04-03] MEDS: Metoprolol Succinate 50 MG Tab.ER PO SCH (08:55)
[2023-04-03] MEDS: Tamsulosin 0.4 MG Cap.ER PO SCH (08:56)
[2023-04-03] MEDS: Potassium Phos in 0.9 % NaCl 15 MMOL in Premix Bag 1 BAG IV SCH ×6 (08:56→13:16)
[2023-04-03] MEDS: Diltiazem IR 30 MG Tab PO SCH ×3 (10:09→22:05)
[2023-04-03] MEDS: Azithromycin 125 MG in Sodium Chloride 0.9% 100 ML IV SCH ×2 (10:10→22:07)
[2023-04-03] MEDS: prednisoLONE Acetate 1% Ophth Susp (PTOM) EYELF SCH (13:00)
[2023-04-03] MEDS: Rivaroxaban 10 MG Tab PO SCH (18:40)
[2023-04-03] MEDS ORDERED: Fluconazole/Normal Saline 400 MG in Premix Bag 1 BAG IV SCH (21:00)
[2023-04-03] MEDS: Melatonin 3 MG Tab PO SCH (21:01)
[2023-04-04] MEDS: Diltiazem IR 30 MG Tab PO SCH (03:09)
[2023-04-04 04:11] LABS: HEMATOCRIT 36.3 % (38.4-49.7); HEMOGLOBIN 12.5 g/dL (12.9-16.9); MEAN CORPUSCULAR HGB CONC 34.4 g/dL (31.6-35.5); MEAN CORPUSCULAR VOLUME 92.8 fL (81.4-99.0); RED BLOOD CELL COUNT 3.91 M/uL (4.14-5.76); WHITE BLOOD CELL COUNT,WBC 9.1 K/uL (3.2-11.0)
[2023-04-04 04:39] LABS: ALANINE AMINOTRANSFERASE,ALT 30 U/L (12-78); ALKALINE PHOSPHATASE 54 U/L (46-116); ASPARTATE AMNIOTRANSFERASE,AST 22 U/L (15-37); BILIRUBIN TOTAL 0.9 mg/dL (0.2-1.0); BLOOD UREA NITROGEN,BUN 12 mg/dL (7-18); CALCIUM 7.8 mg/dL (8.5-10.1); CARBON DIOXIDE,CO2 28 mmol/L (21-32); CHLORIDE,CL 101 mmol/L (100-108); CREATININE 0.7 mg/dL (0.8-1.3); EST CRCL DRUG DOSING (CG) 82.79 mL/min; ESTIMATED GFR 94 mL/min (>60); GLUCOSE RANDOM 77 mg/dL (74-106); MAGNESIUM 1.5 mg/dL (1.8-2.4); PHOSPHORUS 2.7 mg/dL (2.5-4.9); PRO B-TYPE NATRIUR PEPT,BNPPRO 4141 pg/mL (5-450); PROTEIN TOTAL,TP 5.1 g/dL (6.4-8.2); SODIUM,NA 136 mmol/L (140-148)
[2023-04-04 04:42] LABS: A/G RATIO 0.7 (1.2-2.2); ANION GAP 9.9 mmol/L (5.0-14.0); POTASSIUM,K 2.9 mmol/L (3.6-5.2)
[2023-04-04] MEDS: Meropenem 500 MG in Sodium Chloride 0.9% 50 ML IV SCH ×4 (05:12→23:12)
[2023-04-04] MEDS: Acetaminophen 500 MG Tab PO SCH (05:13)
[2023-04-04] MEDS ORDERED: Potassium Chloride 100 ML IV SCH (06:00)
[2023-04-04] MEDS ORDERED: Potassium Chloride 20 MEQ in Premix Bag 1 BAG IV SCH (06:00)
[2023-04-04] MEDS: Potassium Chloride 20 MEQ in Premix Bag 1 BAG IV SCH ×2 (08:03→09:17)
[2023-04-04] MEDS: Docusate Sodium 100 MG Cap PO SCH ×2 (08:34→20:04)
[2023-04-04] MEDS: Bisacodyl 5 MG Tab PO SCH ×2 (08:34→20:04)
[2023-04-04] MEDS: Lactobacillus Rhamnosus GG (Probiotic) Cap PO SCH ×2 (08:35→20:04)
[2023-04-04] MEDS: Tamsulosin 0.4 MG Cap.ER PO SCH ×2 (08:35→16:34)
[2023-04-04] MEDS: Sotalol 80 MG Tab PO SCH ×2 (08:41→20:04)
[2023-04-04] MEDS: Dorzolamide/Timolol 2%-0.5% Ophth Soln 10 ML Bottle EYELF SCH ×2 (08:43→20:04)
[2023-04-04] MEDS ORDERED: Diltiazem 120 MG Cap.CD PO SCH (09:00)
[2023-04-04] MEDS: Potassium Chloride 20 MEQ Tab.ER PO SCH ×2 (09:09→17:07)
[2023-04-04] MEDS: Magnesium Sulfate/Water 2 GM in Premix Bag 1 BAG IV SCH ×3 (09:14→20:05)
[2023-04-04] MEDS: Furosemide 20 MG Tab PO SCH (09:14)
[2023-04-04] MEDS: Metoprolol Succinate 50 MG Tab.ER PO SCH (09:15)
[2023-04-04] MEDS ORDERED: Diltiazem IR 30 MG Tab PO SCH (10:00)
[2023-04-04] MEDS ORDERED: Acetaminophen 325 MG Tab PO PRN (10:18)
[2023-04-04] MEDS ORDERED: Digoxin 500 MCG/2 ML Amp IVPUSH ONE (10:45)
[2023-04-04] MEDS ORDERED: Furosemide 20 MG/2 ML VIAL IVPUSH ONE (10:45)
[2023-04-04] MEDS: Azithromycin 125 MG in Sodium Chloride 0.9% 100 ML IV SCH ×2 (11:08→21:20)
[2023-04-04] MEDS: prednisoLONE Acetate 1% Ophth Susp (PTOM) EYELF SCH (11:09)
[2023-04-04] MEDS: Diltiazem 100 MG in Sodium Chloride 0.9% 100 ML IV SCH ×2 (12:55→21:29)
[2023-04-04] MEDS ORDERED: Diltiazem 25 MG/5 ML SDV IVPUSH ONE (13:00)
[2023-04-04] MEDS: Rivaroxaban 10 MG Tab PO SCH (16:33)
[2023-04-04] MEDS: HYDROmorphone 2 MG Tab PO PRN (16:33)
[2023-04-04] MEDS: traMADol 50 MG Tab PO PRN (20:04)
[2023-04-04] MEDS: Melatonin 3 MG Tab PO SCH (21:20)
[2023-04-04] MEDS: Lactated Ringers 1,000 ML IV SCH (21:25)
[2023-04-05] MEDS: Magnesium Sulfate/Water 2 GM in Premix Bag 1 BAG IV SCH ×4 (03:26→21:06)
[2023-04-05 04:37] LABS: HEMOGLOBIN 12.4 g/dL (12.9-16.9); MEAN CORPUSCULAR HEMOGLOBIN 32.1 pg (31.6-35.5); MEAN CORPUSCULAR HGB CONC 34.4 g/dL (31.6-35.5); MEAN CORPUSCULAR VOLUME 93.3 fL (81.4-99.0); RED BLOOD CELL COUNT 3.86 M/uL (4.14-5.76); WHITE BLOOD CELL COUNT,WBC 10.9 K/uL (3.2-11.0)
[2023-04-05] MEDS: Meropenem 500 MG in Sodium Chloride 0.9% 50 ML IV SCH ×4 (05:13→22:01)
[2023-04-05 05:15] LABS: A/G RATIO 0.6 (1.2-2.2); ALANINE AMINOTRANSFERASE,ALT 22 U/L (12-78); ALBUMIN 1.9 g/dL (3.4-5.0); ALKALINE PHOSPHATASE 59 U/L (46-116); ASPARTATE AMNIOTRANSFERASE,AST 16 U/L (15-37); BILIRUBIN TOTAL 1.2 mg/dL (0.2-1.0); BLOOD UREA NITROGEN,BUN 8 mg/dL (7-18); CALCIUM 7.7 mg/dL (8.5-10.1); CARBON DIOXIDE,CO2 26 mmol/L (21-32); CHLORIDE,CL 99 mmol/L (100-108); CREATININE 0.7 mg/dL (0.8-1.3); EST CRCL DRUG DOSING (CG) 82.79 mL/min; ESTIMATED GFR 94 mL/min (>60); GLUCOSE RANDOM 92 mg/dL (74-106); PHOSPHORUS 2.6 mg/dL (2.5-4.9); POTASSIUM,K 3.5 mmol/L (3.6-5.2); PRO B-TYPE NATRIUR PEPT,BNPPRO 4359 pg/mL (5-450); PROTEIN TOTAL,TP 5.1 g/dL (6.4-8.2); SODIUM,NA 133 mmol/L (140-148)
[2023-04-05 05:23] LABS: ANION GAP 11.5 mmol/L (5.0-14.0)
[2023-04-05] MEDS ORDERED: Bisacodyl 5 MG Tab PO PRN (07:28)
[2023-04-05] MEDS: Furosemide 20 MG Tab PO SCH (08:08)
[2023-04-05] MEDS: Tamsulosin 0.4 MG Cap.ER PO SCH ×2 (08:08→16:35)
[2023-04-05] MEDS: Sotalol 80 MG Tab PO SCH ×2 (08:09→21:05)
[2023-04-05] MEDS: Lactobacillus Rhamnosus GG (Probiotic) Cap PO SCH ×2 (08:11→21:06)
[2023-04-05] MEDS: Docusate Sodium 100 MG Cap PO SCH ×2 (08:11→21:06)
[2023-04-05] MEDS: Metoprolol Succinate 50 MG Tab.ER PO SCH ×2 (08:11→21:07)
[2023-04-05] MEDS: Dorzolamide/Timolol 2%-0.5% Ophth Soln 10 ML Bottle EYELF SCH ×2 (08:12→21:06)
[2023-04-05] MEDS: Albumin Human 25 GM in Premix Bag 1 BAG IV SCH (08:24)
[2023-04-05] MEDS: Potassium Chloride 20 MEQ Tab.ER PO SCH (08:24)
[2023-04-05] MEDS: Diltiazem 100 MG in Sodium Chloride 0.9% 100 ML IV SCH (09:15)
[2023-04-05] MEDS: Azithromycin 125 MG in Sodium Chloride 0.9% 100 ML IV SCH ×2 (10:18→21:12)
[2023-04-05] MEDS: Diltiazem IR 30 MG Tab PO SCH ×3 (10:18→21:07)
[2023-04-05] MEDS: prednisoLONE Acetate 1% Ophth Susp (PTOM) EYELF SCH (12:16)
[2023-04-05] MEDS ORDERED: Potassium Chloride 20 MEQ Tab.ER PO ONE (15:00)
[2023-04-05] MEDS: traMADol 50 MG Tab PO PRN ×2 (15:31→21:56)
[2023-04-05] MEDS: Rivaroxaban 10 MG Tab PO SCH (16:33)
[2023-04-05] MEDS: Melatonin 3 MG Tab PO SCH (21:06)
[2023-04-05] MEDS: HYDROmorphone 2 MG Tab PO PRN (23:09)
[2023-04-06] MEDS: Magnesium Sulfate/Water 2 GM in Premix Bag 1 BAG IV SCH (03:10)
[2023-04-06] MEDS: Diltiazem IR 30 MG Tab PO SCH ×3 (03:10→21:54)
[2023-04-06 04:36] LABS: HEMATOCRIT 33.4 % (38.4-49.7); HEMOGLOBIN 11.3 g/dL (12.9-16.9); MEAN CORPUSCULAR HEMOGLOBIN 31.8 pg (31.6-35.5); MEAN CORPUSCULAR HGB CONC 33.8 g/dL (31.6-35.5); MEAN CORPUSCULAR VOLUME 94.1 fL (81.4-99.0); RED BLOOD CELL COUNT 3.55 M/uL (4.14-5.76); WHITE BLOOD CELL COUNT,WBC 10.3 K/uL (3.2-11.0)
[2023-04-06 05:03] LABS: A/G RATIO 0.6 (1.2-2.2); ALANINE AMINOTRANSFERASE,ALT 32 U/L (12-78); ALBUMIN 1.9 g/dL (3.4-5.0); ALKALINE PHOSPHATASE 71 U/L (46-116); ASPARTATE AMNIOTRANSFERASE,AST 21 U/L (15-37); BILIRUBIN TOTAL 0.7 mg/dL (0.2-1.0); BLOOD UREA NITROGEN,BUN 8 mg/dL (7-18); CALCIUM 7.5 mg/dL (8.5-10.1); CARBON DIOXIDE,CO2 27 mmol/L (21-32); CHLORIDE,CL 100 mmol/L (100-108); CREATININE 0.6 mg/dL (0.8-1.3); EST CRCL DRUG DOSING (CG) 96.94 mL/min; ESTIMATED GFR 98 mL/min (>60); GLUCOSE RANDOM 102 mg/dL (74-106); PHOSPHORUS 3.1 mg/dL (2.5-4.9); POTASSIUM,K 3.7 mmol/L (3.6-5.2); PRO B-TYPE NATRIUR PEPT,BNPPRO 2178 pg/mL (5-450); PROTEIN TOTAL,TP 5.3 g/dL (6.4-8.2); SODIUM,NA 133 mmol/L (140-148)
[2023-04-06 05:12] LABS: ANION GAP 9.7 mmol/L (5.0-14.0)
[2023-04-06] MEDS ORDERED: Iopamidol 612 MG/ML 100 ML Bottle IV STA (07:23)
[2023-04-06] MEDS ORDERED: Sodium Chloride 0.9% 50 ML IV STA (07:23)
[2023-04-06] MEDS: Sotalol 80 MG Tab PO SCH ×2 (08:29→20:59)
[2023-04-06] MEDS: Docusate Sodium 100 MG Cap PO SCH ×2 (08:30→21:01)
[2023-04-06] MEDS: Lactobacillus Rhamnosus GG (Probiotic) Cap PO SCH ×2 (08:30→20:59)
[2023-04-06] MEDS: Dorzolamide/Timolol 2%-0.5% Ophth Soln 10 ML Bottle EYELF SCH ×2 (08:30→21:02)
[2023-04-06] MEDS: Potassium Chloride 20 MEQ Tab.ER PO SCH (08:30)
[2023-04-06] MEDS: Furosemide 20 MG Tab PO SCH (08:31)
[2023-04-06] MEDS: Albumin Human 25 GM in Premix Bag 1 BAG IV SCH (08:31)
[2023-04-06] MEDS: Metoprolol Succinate 50 MG Tab.ER PO SCH ×2 (08:31→21:03)
[2023-04-06] MEDS: Azithromycin 125 MG in Sodium Chloride 0.9% 100 ML IV SCH ×2 (10:21→21:03)
[2023-04-06] MEDS: prednisoLONE Acetate 1% Ophth Susp (PTOM) EYELF SCH (13:28)
[2023-04-06] MEDS: Rivaroxaban 10 MG Tab PO SCH (17:46)
[2023-04-06] MEDS: Lactated Ringers 1,000 ML IV SCH (17:46)
[2023-04-06] MEDS: Melatonin 3 MG Tab PO SCH (21:03)
[2023-04-06] MEDS: Tamsulosin 0.4 MG Cap.ER PO SCH (21:03)
[2023-04-07 04:25] LABS: HEMATOCRIT 31.6 % (38.4-49.7); HEMOGLOBIN 10.9 g/dL (12.9-16.9); MEAN CORPUSCULAR HEMOGLOBIN 32.2 pg (31.6-35.5); MEAN CORPUSCULAR HGB CONC 34.5 g/dL (31.6-35.5); MEAN CORPUSCULAR VOLUME 93.5 fL (81.4-99.0); RED BLOOD CELL COUNT 3.38 M/uL (4.14-5.76); WHITE BLOOD CELL COUNT,WBC 9.6 K/uL (3.2-11.0)
[2023-04-07] MEDS: Diltiazem IR 30 MG Tab PO SCH ×4 (04:54→21:52)
[2023-04-07 05:14] LABS: A/G RATIO 0.7 (1.2-2.2); ALANINE AMINOTRANSFERASE,ALT 44 U/L (12-78); ALBUMIN 2.1 g/dL (3.4-5.0); ALKALINE PHOSPHATASE 64 U/L (46-116); ASPARTATE AMNIOTRANSFERASE,AST 26 U/L (15-37); BILIRUBIN TOTAL 0.8 mg/dL (0.2-1.0); BLOOD UREA NITROGEN,BUN 5 mg/dL (7-18); CALCIUM 8.1 mg/dL (8.5-10.1); CARBON DIOXIDE,CO2 27 mmol/L (21-32); CHLORIDE,CL 102 mmol/L (100-108); CREATININE 0.6 mg/dL (0.8-1.3); EST CRCL DRUG DOSING (CG) 96.94 mL/min; ESTIMATED GFR 98 mL/min (>60); GLUCOSE RANDOM 96 mg/dL (74-106); PHOSPHORUS 3.1 mg/dL (2.5-4.9); POTASSIUM,K 3.7 mmol/L (3.6-5.2); PRO B-TYPE NATRIUR PEPT,BNPPRO 2933 pg/mL (5-450); PROTEIN TOTAL,TP 5.2 g/dL (6.4-8.2); SODIUM,NA 135 mmol/L (140-148)
[2023-04-07 05:29] LABS: ANION GAP 9.7 mmol/L (5.0-14.0)
[2023-04-07] MEDS: Albumin Human 25 GM in Premix Bag 1 BAG IV SCH (07:21)
[2023-04-07] MEDS ORDERED: Potassium Chloride 20 MEQ Tab.ER PO ONE ×2 (09:00→17:30)
[2023-04-07] MEDS ORDERED: Bumetanide 1 MG/4 ML MDV IVPUSH ONE (09:00)
[2023-04-07] MEDS: Lactobacillus Rhamnosus GG (Probiotic) Cap PO SCH ×2 (09:37→20:08)
[2023-04-07] MEDS: Docusate Sodium 100 MG Cap PO SCH ×2 (09:37→20:09)
[2023-04-07] MEDS: Metoprolol Succinate 50 MG Tab.ER PO SCH ×2 (09:38→20:13)
[2023-04-07] MEDS: Dorzolamide/Timolol 2%-0.5% Ophth Soln 10 ML Bottle EYELF SCH ×2 (09:39→20:08)
[2023-04-07] MEDS: Sotalol 80 MG Tab PO SCH ×2 (09:40→20:09)
[2023-04-07] MEDS: Furosemide 20 MG Tab PO SCH (09:48)
[2023-04-07] MEDS: Azithromycin 125 MG in Sodium Chloride 0.9% 100 ML IV SCH (09:50)
[2023-04-07] MEDS: prednisoLONE Acetate 1% Ophth Susp (PTOM) EYELF SCH (12:39)
[2023-04-07] MEDS: Rivaroxaban 10 MG Tab PO SCH (16:28)
[2023-04-07] MEDS: Melatonin 3 MG Tab PO SCH (20:12)
[2023-04-07] MEDS: Tamsulosin 0.4 MG Cap.ER PO SCH (20:13)
[2023-04-08] MEDS: Diltiazem IR 30 MG Tab PO SCH (04:02)
[2023-04-08 04:36] LABS: HEMATOCRIT 35.2 % (38.4-49.7); HEMOGLOBIN 12.1 g/dL (12.9-16.9); MEAN CORPUSCULAR HEMOGLOBIN 32.1 pg (31.6-35.5); MEAN CORPUSCULAR HGB CONC 34.4 g/dL (31.6-35.5); MEAN CORPUSCULAR VOLUME 93.4 fL (81.4-99.0); RED BLOOD CELL COUNT 3.77 M/uL (4.14-5.76); WHITE BLOOD CELL COUNT,WBC 11.8 K/uL (3.2-11.0)
[2023-04-08 05:00] LABS: A/G RATIO 0.8 (1.2-2.2); ALANINE AMINOTRANSFERASE,ALT 61 U/L (12-78); ALBUMIN 2.7 g/dL (3.4-5.0); ALKALINE PHOSPHATASE 72 U/L (46-116); ASPARTATE AMNIOTRANSFERASE,AST 32 U/L (15-37); BILIRUBIN TOTAL 0.9 mg/dL (0.2-1.0); BLOOD UREA NITROGEN,BUN 8 mg/dL (7-18); CALCIUM 8.8 mg/dL (8.5-10.1); CARBON DIOXIDE,CO2 27 mmol/L (21-32); CHLORIDE,CL 100 mmol/L (100-108); CREATININE 0.7 mg/dL (0.8-1.3); EST CRCL DRUG DOSING (CG) 83.09 mL/min; ESTIMATED GFR 94 mL/min (>60); GLUCOSE RANDOM 104 mg/dL (74-106); PHOSPHORUS 3.8 mg/dL (2.5-4.9); POTASSIUM,K 3.9 mmol/L (3.6-5.2); PRO B-TYPE NATRIUR PEPT,BNPPRO 3386 pg/mL (5-450); PROTEIN TOTAL,TP 6.3 g/dL (6.4-8.2); SODIUM,NA 134 mmol/L (140-148)
[2023-04-08 05:02] LABS: ANION GAP 10.9 mmol/L (5.0-14.0)
[2023-04-08] MEDS ORDERED: Bumetanide 1 MG/4 ML MDV IVPUSH ONE (08:00)
[2023-04-08] MEDS ORDERED: Potassium Chloride 20 MEQ Tab.ER PO ONE ×2 (08:00→12:00)
[2023-04-08] MEDS: Docusate Sodium 100 MG Cap PO SCH (09:00)
[2023-04-08] MEDS ORDERED: Diltiazem 120 MG Cap.CD PO SCH (09:00)
[2023-04-08] MEDS: Metoprolol Succinate 50 MG Tab.ER PO SCH (09:02)
[2023-04-08] MEDS: Sotalol 80 MG Tab PO SCH (09:03)
[2023-04-08] MEDS: Lactobacillus Rhamnosus GG (Probiotic) Cap PO SCH (09:03)
[2023-04-08] MEDS: Dorzolamide/Timolol 2%-0.5% Ophth Soln 10 ML Bottle EYELF SCH (09:03)
[2023-04-08] MEDS: Furosemide 20 MG Tab PO SCH (09:05)
[2023-04-08] MEDS ORDERED: Potassium Chloride 10 MEQ Cap.ER PO ONE (11:30)
[2023-04-08] MEDS: prednisoLONE Acetate 1% Ophth Susp (PTOM) EYELF SCH (11:47)
== END 2023-04-08 14:02 | disposition home or self-care (01) | DRG 329 ==
LOC: JP.ED 11:07 → JP.SDS 15:15 → JP.MS 17:45 → JP.ICU 03-31 08:09
PROVIDERS: ADMIT Surgery; ATTEND Surgery
PROC: 0DB80ZZ Excision of Small Intestine, Open Approach (ICD-10-PCS; principal; 2023-03-30)
PROC: 0DTJ0ZZ Resection of Appendix, Open Approach (ICD-10-PCS; 2023-03-30)
PROC: 0WQF0ZZ Repair Abdominal Wall, Open Approach (ICD-10-PCS; 2023-03-30)
PROC: 0WCH0ZZ Extirpation of Matter from Retroperitoneum, Open Approach (ICD-10-PCS; 2023-03-30)
PROC: 0W9J0ZZ Drainage of Pelvic Cavity, Open Approach (ICD-10-PCS; 2023-03-30)
PROC: 0WCG0ZZ Extirpation of Matter from Peritoneal Cavity, Open Approach (ICD-10-PCS; 2023-03-31)
PROC: 02HV33Z Insertion of Infusion Device into Superior Vena Cava, Percutaneous Approach (ICD-10-PCS; 2023-03-31)
PROC: 3E0M05Z Introduction of Adhesion Barrier into Peritoneal Cavity, Open Approach (ICD-10-PCS; 2023-03-31)
PROC: 0WQF0ZZ Repair Abdominal Wall, Open Approach (ICD-10-PCS; 2023-04-02)
DX: K63.1 Perforation of intestine (nontraumatic) (principal); K65.1 Peritoneal abscess; K56.609 Unspecified intestinal obstruction, unspecified as to partial versus complete obstruction; K42.0 Umbilical hernia with obstruction, without gangrene; Z20.822 Contact with and (suspected) exposure to COVID-19; I48.91 Unspecified atrial fibrillation; E78.00 Pure hypercholesterolemia, unspecified; I10 Essential (primary) hypertension; N40.0 Benign prostatic hyperplasia without lower urinary tract symptoms; B96.20 Unspecified Escherichia coli [E. coli] as the cause of diseases classified elsewhere; M19.90 Unspecified osteoarthritis, unspecified site; E66.9 Obesity, unspecified; K57.30 Diverticulosis of large intestine without perforation or abscess without bleeding; E87.6 Hypokalemia; N32.3 Diverticulum of bladder; K86.89 Other specified diseases of pancreas; I95.9 Hypotension, unspecified; Z98.890 Other specified postprocedural states; Z79.01 Long term (current) use of anticoagulants; Z79.899 Other long term (current) drug therapy; Z95.5 Presence of coronary angioplasty implant and graft; Z87.81 Personal history of (healed) traumatic fracture; Z98.49 Cataract extraction status, unspecified eye; Z68.31 Body mass index [BMI] 31.0-31.9, adult
CPT/HCPCS: 36415; 51702; 51798; 74177; 80053; 81001; 82271; 83605; 83690; 85025; 86140; 87070 ×2; 87075 ×2; 87077 ×2; 87186 ×2; 87205 ×2; 88304; 88305; 88307; 96365; 96375; 99285 ×2; J0131; J0171; J0330; J1100 ×2; J1170; J2020 ×4; J2185 ×4; J2704; J2710; J2765; J2795; J3010; J3490 ×6; J7120; Q9967; U0002; 71045; 71045-26; 83735; 83880; 84100; 85027; 93005; 93010; 97161-GP; 99222; 99231; 99232; 99238; A9270-GY; C9113; J0456; J1160; J1450; J1642; J1644; J1940; J2405; J3411; J3475; J3480; J7040; P9047